=== PATIENT | female | born 1970 | race African-American/Black ===

== ENCOUNTER → 2017-03-31 | Day surgery (SDC) | payer OTHER ==
[~2017-03-31] VITALS: Ht 167.6 cm; Wt 120.2 kg
[~2017-03-31] MED LIST: KEFLEX500 M1 PO; LISINOPRIL-HCT1 EAC1 PO; PROAIR HFA8.5 GM INH
--- NOTE | 2017-03-31 12:39 | Operative Report ---
Operative/Inv Procedure Report Surgery Date: 03/31/17 Name of Procedure: Release right carpal tunnel Pre-Operative Diagnosis: Carpal tunnel syndrome right Post-Operative Diagnosis: Same Estimated Blood Loss: scant Surgeon/Assistant Center Director: ALVARO MENDOZA MD Anesthesia: local monitored anesthesi Operative/Procedure Note Note: Patient was counseled regarding the procedure the alternatives risks and the expected outcomes as well as to release the right carpal tunnel. No guarantees were implied or given. We talked about injury to the surrounding structures as a risk including infection bleeding pain failure Cheevers desired results and RSD about open wound requiring prolonged wound care and numbness in the palm or fingertips. Once agreed to informed consent was signed she was taken to the operative placed supine on the table. Intravenous sedation antibiotics are given in the right hand was prepped and draped in usual sterile fashion. Incision was made in the proximal palm brought down through skin and subcutaneous tissue. The palmar fascia was divided and the transverse carpal ligament was identified under direct vision and released. No other pathology was seen. The wound was irrigated closed and splinted
== END ==
LOC: STS 01:40
DX: G56.01 Carpal tunnel syndrome, right upper limb (principal); I10 Essential (primary) hypertension; G47.30 Sleep apnea, unspecified; E66.01 Morbid (severe) obesity due to excess calories; Z68.41 Body mass index [BMI] 40.0-44.9, adult
CPT/HCPCS: J0690; J1885; J2250; J2405

== ENCOUNTER 2017-12-25 10:12 | Emergency (ER) | payer OTHER ==
[~2017-12-25] VITALS: Ht 167.6 cm; Wt 112.0 kg
--- NOTE | 2017-12-25 10:35 | ED GENERAL ADULT ---
See Addendum History of Present Illness General Chief Complaint: Lower Extremity Problems Stated Complaint: R LEG PAIN S/P BASKETBALL INJURY Source: patient Exam Limitations: no limitations Vital Signs & Intake/Output Vital Signs & Intake/Output Vital Signs Date Time Temp Pulse Resp B/P B/P Pulse O2 O2 Flow FiO2 Mean Ox Delivery Rate 12/25 1152 97.7 100 18 152/74 100 Room Air 12/25 1027 99 Room Air 12/25 1022 99.0 114 15 135/91 96 Room Air Room Air Allergies Coded Allergies: codeine (Severe, RASH, HIVES, SWELLING 12/25/17) Reconcile Medications Albuterol Sulfate (Proair Hfa) 90 MCG HFA.AER.AD 2 PUF INH Q4-6 PRN PRN shortness of breath Ibuprofen 600 MG TABLET 1 TAB PO TID PRN PAIN with food Lisinopril/Hydrochlorothiazide (Lisinopril-Hctz 20-25 MG Tab) 1 EACH TABLET 1 TAB PO DAILY BP (Reported) Triage Note: PT TO ED FOR C/C OF R GROIN PAIN S/P PLAYING BASKETBALL ON TUESDAY. "FEELS LIKE A BAD PULL." DENIES FALL. AMBULATORY IN TRIAGE. Triage Nurses Notes Reviewed? yes Onset: Abrupt Duration: day(s): Timing: recent history : No Patient currently breastfeeds: No HPI: 12/25/17 47-year-old female presents to the emergency department complaining of right- sided groin pain. She says she was playing basketball on Tuesday and turned and pulled her right groin. She says she's had ongoing pain to the right inguinal region since then. She denies other injuries or complaints. No head injury no neck pain. Past History Travel History Traveled to [place] past 21 day No Medical History Any Pertinent Medical History? 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 No Review of Systems Review of Systems Constitutional: Denies: fever. EENTM: Reports: no symptoms. Respiratory: Reports: no symptoms. Cardiovascular: Denies: chest pain. GI: Denies: abdominal pain. Genitourinary: Reports: no symptoms. Musculoskeletal: Reports: see HPI. Skin: Denies: rash. Neurological/Psychological: Reports: no symptoms. Hematologic/Endocrine: Reports: no symptoms. Immunologic/Allergic: Reports: no symptoms. Physical Exam Physical Exam General Appearance: well developed/nourished, alert, awake, anxious, mild distress Head: atraumatic, normal appearance Eyes: Bilateral: normal appearance, PERRL, EOMI. Ears, Nose, Throat: normal ENT inspection Neck: supple, full range of motion Respiratory: normal breath sounds, chest non-tender, no respiratory distress Cardiovascular: regular rate/rhythm Peripheral Pulses: 4+ radial (R), 4+ radial (L) Gastrointestinal: non-tender Back: decreased range of motion Extremities: tenderness Neurologic/Psych: no motor/sensory deficits, awake, alert, oriented x 3 Skin: intact, normal color, warm/dry Core Measures ACS in differential dx? No CVA/TIA Diagnosis: No Sepsis Present: No Sepsis Focused Exam Completed? No Progress Differential Diagnoses I considered the following diagnoses in my evaluation of the patient: [Groin strain, hip fracture, muscle strain, DVT] Plan of Care: Orders Procedure Date/time Status Durable Medical Equipment 12/25 1200 Active X-ray was read by the radiologist as no evidence of acute fracture. She does have an old avulsion fracture to the anterior inferior iliac spine. Results were reviewed with the patient. She was given crutches. She will take nonsteroidal anti-inflammatories for pain. She will follow-up with orthopedics this week she will not be week. And use crutches for the next 5 days PATIENT: CAIO MOORE PRESENT AGE: 47 PATIENT ACCOUNT NO: [id number] : 72 LOCATION: [facility] ORDERING PHYSICIAN: Rudy Kaur DO SERVICE DATE: 12/25/17-1051 EXAM TYPE: RAD - XRY-HIP 2-3 VIEWS, RIGHT EXAMINATION: XR HIP, RIGHT CLINICAL INFORMATION: Right groin pain COMPARISON: None TECHNIQUE: Two views of the right hip and single AP view of the pelvis. FINDINGS: There is no evidence of acute fracture. The right hip is anatomically aligned. The joint spaces are preserved. There is a 3.2 x 2.6 cm heterotopic ossification in the region of the right anterior inferior iliac spine which could be the sequela of prior avulsion injury. The bony pelvis and left hip are otherwise unremarkable. The soft tissues are grossly unremarkable. IMPRESSION: Normal right hip. Findings suggestive of remote avulsion fracture of the right anterior inferior iliac spine with heterotopic ossification. DICTATED BY: Luz Elena Kennedy MD DATE/TIME DICTATED:12/25/171130 HIGH SPEED PRINTER OPERATOR:TJ DATE/TIME TRANSCRIBED:12/25/171130 CONFIDENTIAL, DO NOT COPY WITHOUT APPROPRIATE AUTHORIZATION. <Electronically signed in Other Vendor System> SIGNED BY: Luz Elena Kennedy MD 12/25/17 1142 Initial ED EKG: none Departure Departure Disposition: HOME OR SELF CARE Condition: Stable Clinical Impression Primary Impression: Strain of groin Secondary Impressions: Strain of muscle of right groin region Referrals: Cameron Mg MD (PCP/Family) Departure Forms: Customer Survey General Discharge Information Prescriptions: Current Visit Scripts Ibuprofen 1 TAB PO TID PRN PAIN #30 TAB with food Comments PATIENT: CAIO MOORE PRESENT AGE: 47 PATIENT ACCOUNT NO: [id number] : 72 LOCATION: [facility] ORDERING PHYSICIAN: Rudy Kaur DO SERVICE DATE: 12/25/17 EXAM TYPE: RAD - XRY-HIP 2-3 VIEWS, RIGHT EXAMINATION: XR HIP, RIGHT CLINICAL INFORMATION: Right groin pain COMPARISON: None TECHNIQUE: Two views of the right hip and single AP view of the pelvis. FINDINGS: There is no evidence of acute fracture. The right hip is anatomically aligned. The joint spaces are preserved. There is a 3.2 x 2.6 cm heterotopic ossification in the region of the right anterior inferior iliac spine which could be the sequela of prior avulsion injury. The bony pelvis and left hip are otherwise unremarkable. The soft tissues are grossly unremarkable. IMPRESSION: Normal right hip. Findings suggestive of remote avulsion fracture of the right anterior inferior iliac spine with heterotopic ossification. DICTATED BY: Luz Elena Kennedy MD DATE/TIME DICTATED:12/25/171130 HIGH SPEED PRINTER OPERATOR:TJ DATE/TIME TRANSCRIBED:02/25/18 / 1131 CONFIDENTIAL, DO NOT COPY WITHOUT APPROPRIATE AUTHORIZATION. <Electronically signed in Other Vendor System> SIGNED BY: Luz Elena Kennedy MD 12/25/17 1142 Critical Care Note Critical Care Note Critical Care Time: non-applicable
--- NOTE | 2017-12-25 11:42 | RADIOLOGY REPORT ---
EXAMINATION: XR HIP, RIGHT CLINICAL INFORMATION: Right groin pain COMPARISON: None TECHNIQUE: Two views of the right hip and single AP view of the pelvis. FINDINGS: There is no evidence of acute fracture. The right hip is anatomically aligned. The joint spaces are preserved. There is a 3.2 x 2.6 cm heterotopic ossification in the region of the right anterior inferior iliac spine which could be the sequela of prior avulsion injury. The bony pelvis and left hip are otherwise unremarkable. The soft tissues are grossly unremarkable. IMPRESSION: Normal right hip. Findings suggestive of remote avulsion fracture of the right anterior inferior iliac spine with heterotopic ossification.
[2017-12-25 11:52] VITALS: BP 152/74
[2017-12-25] MEDS ORDERED: IBUPROFEN600 M1 PO (12:00)
== END 2017-12-25 12:22 ==
LOC: ERH 10:12
DX: S39.011A Strain of muscle, fascia and tendon of abdomen, initial encounter (principal); X58.XXXA Exposure to other specified factors, initial encounter; Y93.67 Activity, basketball
CPT/HCPCS: 73502-RT; 96372; J1885

== ENCOUNTER 2018-05-28 07:43 | Emergency (ER) | payer OTHER ==
[~2018-05-28] VITALS: Ht 167.6 cm; Wt 99.8 kg
[~2018-05-28 07:43] MED LIST changes: +IBUPROFEN600 M1 PO
--- NOTE | 2018-05-28 08:25 | RADIOLOGY REPORT ---
EXAMINATION: XR KNEE, LEFT CLINICAL INFORMATION: Left knee pain after fall. COMPARISON: None TECHNIQUE: Four views of the left knee. FINDINGS: The tricompartment joint space is maintained. No fracture, bony erosive changes seen. There is mild periarticular spurring medial tibial plateau. No abnormal suprapatellar joint effusion seen. IMPRESSION: No visible acute fracture or dislocation. Minimal degenerative arthritic changes medial compartment.
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
[2018-05-28] MEDS ORDERED: IBUPROFEN800 M1 PO (09:29)
[2018-05-28 10:05] VITALS: BP 129/72
== END 2018-05-28 10:15 ==
LOC: ERH 07:43
DX: M25.562 Pain in left knee (principal)
CPT/HCPCS: 73562-LT